=== PATIENT | female | born 1955 | race Caucasian/White ===

== ENCOUNTER 2016-08-31 06:57 | Inpatient (IN) ==
[2016-08-26 13:28] LABS: Appearance,Urine CLEAR; Bilirubin,Urine NEG (NEG); Color,Urine YELLOW; Glucose,Urine (UA) 50 mg/dL (NEG); Leukocyte Esterase,Urine NEG /uL (NEG); Nitrate,Urine NEG (NEG); Protein,Urine NEG (NEG); Specific Gravity,Urine 1.008 (1.000-1.035); Urine Blood NEG mg/dL (<0.03); Urobilinogen,Urine NEG (NEG)
[2016-08-26 14:37] LABS: Basophils # (Auto) 0 K/mcL (0.0-0.3); Basophils % (Auto) 0.6 % (0.0-2.0); Eosinophils # (Auto) 0.2 K/mcL (0.0-0.7); Eosinophils % (Auto) 3.5 % (0.0-7.0); Lymphocytes # (Auto) 1.7 K/mcL (1.5-4.8); Lymphocytes % (Auto) 31.8 % (15.5-49.0); Mean Cell Volume 94.7 fL (80.0-100.0); Mean Corpuscular HGB Conc 32.9 g/dL (31.0-36.0); Mean Corpuscular Hemoglobin 31.1 pg (26.0-34.0); Monocytes # (Auto) 0.3 K/mcL (0.1-0.9); Monocytes % (Auto) 6.1 % (1.0-12.0); Platelet Count 318 K/mcL (140-440); RBC 4.12 M/mcL (4.00-5.20)
[2016-08-26 14:42] LABS: Blood Urea Nitrogen 15 mg/dl (6-20)
[~2016-08-31 06:57] MED LIST: KETOROLAC 30 MG, ROPIVACAINE HCL/PF 49.5 ML, EPINEPHrine 0.5 MG, 0.9 % SODIUM CHLORIDE ... IJ SCH; PREGABALIN 150 MG CAPSULE PO SCH; ceFAZolin 1 GM VIAL IV SCH; oxyCODONE 10 MG TAB.ER.12H PO SCH
[2016-08-31] MEDS ORDERED: GENTAMICIN SULFATE 800 MG/20 ML VIAL IR ONE (07:44)
[2016-08-31] MEDS ORDERED: LIDOCAINE HCL/PF 100 MG/5 ML SYRINGE IV ONE (09:23)
[2016-08-31] MEDS ORDERED: MIDAZOLAM 5 MG/5 ML VIAL ONE (09:23)
[2016-08-31] MEDS ORDERED: DEXAMETHASONE 10 MG/ML VIAL ONE (09:23)
[2016-08-31] MEDS ORDERED: PHENYLEPHRINE 10 MG/ML VIAL ONE (09:23)
[2016-08-31] MEDS ORDERED: PROPOFOL 200 MG/20 ML VIAL IV ONE (09:23)
[2016-08-31] MEDS ORDERED: ONDANSETRON 4 MG/2 ML VIAL ONE (09:23)
[2016-08-31] MEDS ORDERED: METOPROLOL TARTRATE 5 MG/5 ML VIAL IV PRN (10:27)
[2016-08-31] MEDS ORDERED: IPRATROPIUM/ALBUTEROL 3 ML AMPUL.NEB NEB PRN (10:27)
[2016-08-31] MEDS ORDERED: ePHEDrine 50 MG/ML AMPUL IV PRN (10:27)
[2016-08-31] MEDS ORDERED: ONDANSETRON 4 MG/2 ML VIAL IV PRN (10:27)
[2016-08-31] MEDS ORDERED: MEPERIDINE 25 MG/ML SYRINGE IV PRN (10:27)
[2016-08-31] MEDS ORDERED: METHOCARBAMOL 1,000 MG/10 ML VIAL IV PRN (10:27)
[2016-08-31] MEDS ORDERED: PROMETHAZINE 25 MG/ML VIAL IM ONE (10:27)
[2016-08-31] MEDS ORDERED: MEPERIDINE 50 MG/ML SYRINGE IM ONE (10:27)
[2016-08-31] MEDS ORDERED: fentaNYL 100 MCG/2 ML VIAL IV PRN (10:27)
[2016-08-31] MEDS ORDERED: PROMETHAZINE 25 MG/ML VIAL IV PRN (10:27)
[2016-08-31] MEDS ORDERED: ATROPINE SULFATE 0.4 MG/ML VIAL IV PRN (10:27)
[2016-08-31] MEDS ORDERED: diphenhydrAMINE 50 MG/ML VIAL IV PRN (10:27)
[2016-08-31] MEDS ORDERED: NALOXONE HCL 0.4 MG/ML VIAL IV PRN (10:27)
[2016-08-31] MEDS ORDERED: HYDROmorphone 2 MG/ML SYRINGE IV PRN ×2 (10:27→11:07)
[2016-08-31] MEDS ORDERED: FLUMAZENIL 0.1 MG/ML ML IV PRN (10:27)
[2016-08-31] MEDS ORDERED: BENZOCAINE/MENTHOL 1 LOZENGE PO PRN ×2 (10:27→11:07)
[2016-08-31] MEDS ORDERED: LACTATED RINGERS 1,000 ML IV SCH (10:30)
--- NOTE | 2016-08-31 11:05 | Brief Operative Note ---
Date of procedure: 08/31/16 Pre-op diagnosis: left knee oa Post-op diagnosis: same Procedure: left total knee arthroplasty Grafts/Implants: Yes Anesthesia: spinal Complications: none Surgeon: Suleiman Zepeda Rn Wound: Pauline Esparza Estimated blood loss (cc): 150 Tourniquet Time (Minutes): 55 Specimens Removed/Pathology: none sent Condition: stable Disposition: PACU
[2016-08-31] MEDS ORDERED: MAGNESIUM HYDROXIDE 30 ML ORAL.SUSP PO PRN (11:07)
[2016-08-31] MEDS ORDERED: FLEETS ADULT ENEMA PR PRN (11:07)
[2016-08-31] MEDS ORDERED: ONDANSETRON ODT 4 MG TABLET SL PRN (11:07)
[2016-08-31] MEDS ORDERED: TRANEXAMIC ACID 1,000 MG/10 ML VIAL IV SCH (11:07)
[2016-08-31] MEDS ORDERED: METHOCARBAMOL 750 MG TABLET PO PRN (11:07)
[2016-08-31] MEDS ORDERED: BISACODYL 10 MG SUPP.RECT PR PRN (11:07)
[2016-08-31] MEDS ORDERED: POLYETHYLENE GLYCOL 3350 17 GM PACKET PO PRN (11:07)
[2016-08-31] MEDS ORDERED: INSULIN PUMP SC SCH (11:15)
--- NOTE | 2016-08-31 12:06 | Operative Note ---
DATE OF OPERATION: 08/31/2016 PREOPERATIVE DIAGNOSIS: Degenerative joint disease, left knee. POSTOPERATIVE DIAGNOSIS: Degenerative joint disease, left knee. PROCEDURE: Left total knee arthroplasty. SURGEON: Jennifer Zepeda M.D. SECURITY CLERK SURGEON: Pauline Esparza PA-C. ANESTHESIA: Spinal with LMA assist. ESTIMATED BLOOD LOSS: 100 mL. COMPLICATIONS: None noted. SPECIMENS REMOVED: None. DRAINS: None. TOURNIQUET TIME: 55 minutes at 250 mmHg. IMPLANTS: DePuy CMW2 antibiotic bone cement 20 grams x4; DePuy Attune femoral posterior stabilized size 6, left narrow; DePuy Attune tibial insert fixed bearing posterior stabilized size 6, 5 mm AOX; DePuy Attune tibial base fixed bearing size 4 cemented; DePuy Attune patella medialized dome 35 mm cemented AOX. INDICATIONS: The patient has had a long-standing history of worsening pain in the knee that has failed conservative treatment. Radiographs have confirmed advanced degenerative joint disease. After a long discussion about treatment options, the patient elected to proceed with a knee arthroplasty. The risks and benefits were discussed with the patient in detail including, but not limited to, the risks of anesthesia, problems with the heart or lungs related to anesthesia, infection, compromise or injury to the nerves and blood vessels, deep venous thrombosis, pulmonary embolism, pneumonia, continued pain after surgery, worsening pain or symptoms after surgery, swelling, loss of motion, instability, leg length discrepancy, and need for repeat surgery. DESCRIPTION OF PROCEDURE: The patient was seen in the pre-anesthesia waiting room where all questions were answered and the correct side and site were identified and marked. The patient was transferred to the operating room and administered the anesthetic and given pre-operative antibiotics. A time-out was then called. The extremity was prepped and draped, exsanguinated, and the tourniquet was inflated to 300 mmHg. A midline skin incision was then made with a standard medial parapatellar arthrotomy. Debridement of the menisci, ACL, and PCL was performed followed by balancing releases in the medial lateral plane. We then established intramedullary access to both the femur and tibia in a standard fashion. The femoral guide yovanny was initially placed with the distal femoral guide, pinned into place, and the distal femoral cut was performed and checked with a flat plate. We then turned our attention to the tibia. The intramedullary guide was placed with the proximal tibial cutting block. The block was appropriately positioned off the affected side, varus and valgus was checked with the extra-medullary guide, and the block was pinned into place. The proximal tibial cut was performed and the tibia was prepared for the tibial implant with appropriate rotation. The tibia, femur, and posterior compartment were debrided of osteophytes, loose bodies, and meniscal fragments We then used the gap balancing technique to balance extension with the first two cuts and good balancing was obtained with a 10 millimeter gap block. We turned our attention back to the femur and used the referencing block and implant to size appropriately. Using the gap balancing technique for the flexion space we set our rotation of the femur off the tibial cut. Anesthesia gave the patient 1 gram of Tranexamic Acid via an intravenous route. We placed the 4 in 1 cutting block and made anterior, posterior, and chamfer cuts. Box plasty cuts were then made in a standard fashion for the posterior stabilized prosthesis. We then completed osteophyte release and posterior capsule release from the posterior compartment. Trials were placed and we chose the polyethylene insert thickness that provided the best stability in all planes. With the trials in place, we did a measured resection for a resurfacing patella. We sized the patella and placed the patella trial and performed a lateral facetectomy with the saw and rongeur. Good tracking was obtained. We removed all trials, irrigated and dried all cut surfaces. We cemented the components into place including tibia, femur and patella. We placed a trial liner and held the knee in full extension with the patella compressed while the cement cured. We then removed all excess cement and placed the final polyethylene tibiofemoral component. Irrigation with 3 liters of antibiotic saline was then performed using jet-lavage. We let the tourniquet down and coagulated bleeding vessels. We injected a 100 cubic centimeter volume including Ropivacaine 49.25 cubic centimeters at 5 milligrams per cubic centimeter, Ketorolac 30 milligrams, and Epinephrine 0.5 milligrams into 100 cubic centimeters volume of normal saline. We placed a deep drain and closed the retinaculum with looped #0 Maxon. We closed the subcutaneous tissue and skin in layers out to isabel in the skin. A sterile pressure dressing was applied. All needle and sponge counts were correct. The patient was transferred to the recovery room in stable condition. RIMA:neha Job ID: [id number] Doc ID: [id number] Jennifer Zepeda MD
--- NOTE | 2016-08-31 12:11 | XRay Report ---
CLINICAL INFORMATION: Reason for Exam:Post-Op Total Knee COMPARISON: None. FINDINGS: Total knee prostheses is anatomically aligned. No osseous abnormality. Soft tissues swelling seen as expected IMPRESSION: Negative Interpreted and Authenticated by: Suleiman Mckee 08/31/16
[2016-08-31] MEDS: KETOROLAC 15 MG/ML VIAL IV SCH ×2 (12:27→17:43)
[2016-08-31] MEDS: 0.9 % SODIUM CHLORIDE 1,000 ML IV SCH ×2 (13:47→21:47)
[2016-08-31] MEDS: 0.9 % SODIUM CHLORIDE 10 ML SYRINGE IV SCH ×2 (13:51→20:23)
[2016-08-31] MEDS: HYDROcodone/APAP 10/325MG TABLET PO PRN ×3 (16:01→21:20)
[2016-08-31] MEDS: ceFAZolin 1 GM VIAL IV SCH (17:43)
[2016-08-31] MEDS: SENNOSIDES 1 TABLET PO SCH (20:23)
[2016-08-31] MEDS: DOCUSATE SODIUM 100 MG CAPSULE PO SCH (20:23)
[2016-08-31] MEDS: ASPIRIN 325 MG ENTERIC COATED TABLET PO SCH (20:23)
[2016-08-31] MEDS ORDERED: ROSUVASTATIN 10 MG TABLET PO SCH (21:00)
[2016-09-01] MEDS: KETOROLAC 15 MG/ML VIAL IV SCH ×5 (00:01→23:53)
[2016-09-01] MEDS: ceFAZolin 1 GM VIAL IV SCH (00:01)
[2016-09-01] MEDS: HYDROcodone/APAP 10/325MG TABLET PO PRN ×2 (02:21→06:08)
[2016-09-01] MEDS: 0.9 % SODIUM CHLORIDE 1,000 ML IV SCH (03:49)
[2016-09-01] MEDS: 0.9 % SODIUM CHLORIDE 10 ML SYRINGE IV SCH ×3 (05:45→20:28)
--- NOTE | 2016-09-01 06:56 | Orthopedic Progress Note ---
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 Chief Complaint: [] Interval history: doing well. pain last night. up a few times Objective Vital signs: Vital Signs Temp Pulse Pulse Resp BP BP Pulse Ox 09/01/16 02:56 97.7 F 89 18 109/65 92 08/31/16 23:58 98.2 F 96 H 18 102/66 92 08/31/16 18:53 97.7 F 116 H 18 114/58 92 08/31/16 15:55 99 H 135/74 93 08/31/16 14:55 88 126/78 99 08/31/16 14:25 87 123/64 98 08/31/16 13:55 94 H 127/70 93 08/31/16 13:25 91 H 126/69 95 08/31/16 13:10 91 H 122/71 96 08/31/16 12:55 97.1 F L 121/79 95 08/31/16 12:40 18 130/57 94 08/31/16 12:36 100 H 16 135/63 96 08/31/16 12:15 16 96 08/31/16 12:01 98.2 F 80 16 131/71 95 08/31/16 11:45 98 H 16 117/55 93 08/31/16 11:29 98.4 F 75 16 112/51 08/31/16 07:26 97.3 F L 108 H 16 119/83 95 Intake and Output 08/31/16 09/01/16 09/01/16 21:59 05:59 13:59 Intake Total 3350 / 3350 200 / 200 Output Total 300 / 300 Balance 3050 / 3050 200 / 200 Intake: IV 1000 / 1000 Sodium Chloride 0.9% 1, 1000 / 1000 000 ml @ 125 mls/hr IV . Q8H FELIPA Rx#:[id number] Oral 2350 / 2350 200 / 200 Output: Void Amount 300 / 300 Other: Meal Dinner Percent of Meal Consumed 100% Feeding Ability Independent # Voids 1 1 Weight 232 lb Intake & Output: Intake & Output 08/31/16 09/01/16 09/01/16 21:59 05:59 13:59 Intake Total 3350 / 3350 200 / 200 Output Total 300 / 300 Balance 3050 / 3050 200 / 200 Weight 232 lb Intake: IV 1000 / 1000 Sodium Chloride 0.9% 1, 1000 / 1000 000 ml @ 125 mls/hr IV . Q8H FELIPA Rx#:[id number] Oral 2350 / 2350 200 / 200 Output: Void Amount 300 / 300 Other: Meal Dinner Percent of Meal Consumed 100% Feeding Ability Independent # Voids 1 1 Incision: Yes healing, Yes clean and dry Incision clean and dry: Yes Dressing: Yes clean, Yes dry, Yes intact Weight bearing status: full Neurological exam IM: Yes abnormal gait, Yes alert, Yes oriented X3, Yes motor sensory intact, Yes neurovascular intact Extremities exam IM: No calf tenderness, Yes joint swelling, Yes normal capillary refill, Yes Foot pink and warm, Yes neurovascular intact - Labs CBC & BMP: 09/01/16 04:57 08/26/16 10:42 Labs: Orthopedic Labs 08/26/16 10:43 PT 12.9 INR 1.0 09/01/16 08/26/16 04:57 10:43 Hgb 10.6 L 12.8 Hct 31.7 L 39.0 Assessment and Plan (1) Knee osteoarthritis pod 1 s/p tka wbat pain control dvt prophylaxis d/c planning - home when comfortable and passes pt Status: Acute
--- NOTE | 2016-09-01 06:57 | Discharge Summary ---
Ortho Discharge - TKA - Patient Instructions Diet: Regular Diet Activity: activity as tolerated, ambulate with assistive device, weight bearing as tolerated Total Knee Protocol: For Total Knee: Start ROM MAXIMUS with stationary bike or rocking chair. Work on gaining full extension of knee. Posterior dislocation precautions provided. Hip abductor strengthening and gait training instructions provided. Apply Cryocuff as instructed. Dressing Care: May shower in 2 days Patient Education: Total Knee Replacement (DC) - Problem Maintenance (1) Knee osteoarthritis Status: Acute - Follow Up Plan Disposition: Home, Self-Care Prognosis: Good Rehab Potential: Good I certify that the patient requires SNF services: No Overall status at discharge: patient is progressing back to baseline
[2016-09-01] MEDS: LOSARTAN 50 MG TABLET PO SCH (08:53)
[2016-09-01] MEDS: ASPIRIN 325 MG ENTERIC COATED TABLET PO SCH ×2 (08:54→20:28)
[2016-09-01] MEDS: DOCUSATE SODIUM 100 MG CAPSULE PO SCH ×2 (08:54→20:28)
[2016-09-01] MEDS: HYDROCHLOROTHIAZIDE 25 MG TABLET PO SCH (08:54)
[2016-09-01] MEDS: SIMVASTATIN 20 MG TABLET PO SCH (08:54)
[2016-09-01] MEDS: ONDANSETRON 4 MG/2 ML VIAL IV PRN ×2 (09:15→12:40)
[2016-09-01] MEDS ORDERED: PROMETHAZINE 25 MG/ML VIAL IV PRN (12:19)
[2016-09-01] MEDS: oxyCODONE/APAP 5/325MG TABLET PO PRN ×4 (12:40→23:54)
[2016-09-01] MEDS: SENNOSIDES 1 TABLET PO SCH (20:28)
[2016-09-02] MEDS: KETOROLAC 15 MG/ML VIAL IV SCH (06:30)
[2016-09-02] MEDS: 0.9 % SODIUM CHLORIDE 10 ML SYRINGE IV SCH (06:30)
[2016-09-02] MEDS: oxyCODONE/APAP 5/325MG TABLET PO PRN ×2 (06:39→11:13)
--- NOTE | 2016-09-02 07:23 | Orthopedic Progress Note ---
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 Chief Complaint: [] Interval history: doing better today Objective Vital signs: Vital Signs Temp Pulse Pulse Resp BP Pulse Ox 09/02/16 03:46 98.2 F 82 24 114/72 96 09/02/16 00:00 97.9 F 96 H 22 116/74 95 09/01/16 21:43 96 H 92 09/01/16 20:00 98.3 F 88 24 111/69 93 09/01/16 17:06 98.0 F 89 124/70 93 09/01/16 16:50 88 L 09/01/16 12:55 97.4 F L 86 18 119/72 93 09/01/16 07:47 97.2 F L 99 H 18 107/67 95 Intake and Output 09/01/16 09/02/16 09/02/16 21:59 05:59 13:59 Intake Total 500 / 500 200 / 200 Output Total 350 / 350 800 / 800 Balance 150 / 150 200 / 200 -800 / -800 Intake: Oral 500 / 500 200 / 200 Output: Void Amount 350 / 350 800 / 800 Other: # Voids 1 Weight 231 lb 8 oz Intake & Output: Intake & Output 09/01/16 09/02/16 09/02/16 21:59 05:59 13:59 Intake Total 500 / 500 200 / 200 Output Total 350 / 350 800 / 800 Balance 150 / 150 200 / 200 -800 / -800 Weight 231 lb 8 oz Intake: Oral 500 / 500 200 / 200 Output: Void Amount 350 / 350 800 / 800 Other: # Voids 1 Incision: Yes healing, Yes clean and dry Incision clean and dry: Yes Dressing: Yes clean, Yes dry, Yes intact Weight bearing status: full Neurological exam IM: Yes abnormal gait, Yes alert, Yes oriented X3, Yes motor sensory intact, Yes neurovascular intact Extremities exam IM: No calf tenderness, Yes Foot pink and warm, Yes neurovascular intact - Labs CBC & BMP: 09/02/16 05:30 08/26/16 10:42 Labs: Orthopedic Labs 08/26/16 10:43 PT 12.9 INR 1.0 09/02/16 09/01/16 08/26/16 05:30 04:57 10:43 Hgb 10.2 L 10.6 L 12.8 Hct 30.3 L 31.7 L 39.0 Assessment and Plan (1) Knee osteoarthritis pod 2 s/p tka wbat pain control dvt prophylaxis d/c planning - home when comfortable and passes pt Status: Acute
[2016-09-02] MEDS: SIMVASTATIN 20 MG TABLET PO SCH (09:04)
[2016-09-02] MEDS: HYDROCHLOROTHIAZIDE 25 MG TABLET PO SCH ×2 (09:04→09:08)
[2016-09-02] MEDS: DOCUSATE SODIUM 100 MG CAPSULE PO SCH (09:06)
[2016-09-02] MEDS: ASPIRIN 325 MG ENTERIC COATED TABLET PO SCH (09:06)
[2016-09-02] MEDS: LOSARTAN 50 MG TABLET PO SCH (09:07)
== END 2016-09-02 12:05 | disposition home or self-care (01) | DRG 470 ==
LOC: MEDSUR 06:57
PROVIDERS: ADMIT Orthopaedic Surgery Sports Medicine; ATTEND Orthopaedic Surgery Sports Medicine